=== PATIENT | female | born 1980 | race African-American/Black ===

== ENCOUNTER 2016-04-13 15:54 | Emergency (ER) | payer OTHER ==
[~2016-04-13] VITALS: Ht 162.6 cm; Wt 77.3 kg
[~2016-04-13 15:54] MED LIST: ARIP5TAB9 PO; GABA-531 PO; GLIP5 PO; METF500T7 PO; SERT50TA12 PO
[2016-04-13 16:30] VITALS: BP 118/70
[2016-04-13 16:41] LABS: GLUCOSE,POINT OF CARE 180 MG/DL (70-110)
[2016-04-13 18:22] LABS: INFLUENZA TYPE B NEGATIVE FOR TYPE B (NEGATIVE)
== END 2016-04-13 17:51 | disposition left against medical advice (07) ==
LOC: EMS 15:59
DX: J06.9 Acute upper respiratory infection, unspecified (principal); E11.9 Type 2 diabetes mellitus without complications; F17.210 Nicotine dependence, cigarettes, uncomplicated
CPT/HCPCS: 82962; 87804; 99284